=== PATIENT | male | born 1980 ===

== ENCOUNTER 2017-09-29 03:37 | Emergency (ER) | payer SELFPAY ==
[2017-09-29 03:53] VITALS: RESP 18
--- NOTE | 2017-09-29 04:41 | ED PDOC ---
HPI: Psych/Substance Abuse Time Seen by Provider: 09/29/17 03:48 Chief Complaint (Nursing): Psychiatric Evaluation History Per: Patient Additional Complaint(s): Pt. states for the past 2 months he's been feeling depressed. Reports recently starting a new antidepressant. This evening after work he felt overwhelmed and depression worsened. He began to feel suicidal. States he walked up to a bridge in an attempt to jump off of it but became scared and did not go through with the plan. Denies HI, hallucinations. Offers no physical complaints at this time. Past Medical History Reviewed: Historical Data, Nursing Documentation, Vital Signs Vital Signs: Last Vital Signs Temp 97.3 F L 09/29/17 03:50 Pulse 83 09/29/17 03:50 Resp 18 09/29/17 03:50 BP 155/94 H 09/29/17 03:50 Pulse Ox 99 09/29/17 03:50 - Family History Family History: States: No Known Family Hx - Allergies Allergies/Adverse Reactions: Allergies Allergy/AdvReac Type Severity Reaction Status Date / Time No Known Allergies Allergy Verified 09/29/17 03:52 Review of Systems ROS Statement: Except As Marked, All Systems Reviewed And Found Negative Psych: Positive for: Anxiety, Depression Physical Exam - Physical Exam Appears: Positive for: Well, Non-toxic, In Acute Distress (appears anxious) Skin: Positive for: Normal Color, Warm. Negative for: Rash Eye Exam: Positive for: Normal appearance ENT: Positive for: Normal ENT Inspection Neck: Positive for: Normal, Painless ROM Cardiovascular/Chest: Positive for: Regular Rate, Rhythm Respiratory: Positive for: CNT, Normal Breath Sounds Gastrointestinal/Abdominal: Positive for: Normal Exam, Soft. Negative for: Tenderness Back: Positive for: Normal Inspection Extremity: Positive for: Normal ROM Neurologic/Psych: Positive for: Alert, Oriented, Mood/Affect (appears anxious but is consolable). Negative for: Aphasia, Facial Droop - ECG O2 Sat by Pulse Oximetry: 99 - Progress ED Course And Treament: Pt. placed on 1:1. Crisis evaluation ordered. Xanax 0.5mg PO ordered. Disposition - Clinical Impression Clinical Impression: Depression - Patient ED Disposition Is Patient to be Admitted: Transfer of Care (Signed out to Dr. Sarabia pending crisis evaluation.) - Disposition Disposition Time: 06:00 Condition: STABLE Forms: [employer] (C[place] Verdean)
[2017-09-29 06:41] VITALS: BP 136/79; PULSE 82; TEMP 98; O2SAT 100
== END 2017-09-29 06:41 | disposition home or self-care (01) ==
LOC: H.ER 03:37
DX: F32.9 Major depressive disorder, single episode, unspecified (principal)

== ENCOUNTER 2018-08-20 15:52 | Emergency (ER) | payer SELFPAY ==
--- NOTE | 2018-08-20 16:21 | ED PDOC ---
HPI: Psych/Substance Abuse Time Seen by Provider: 08/20/18 16:13 Chief Complaint (Nursing): Psychiatric Evaluation Chief Complaint (Provider): Suicidal Ideation History Per: Patient, Other ([employer] worker) History/Exam Limitations: no limitations Onset/Duration Of Symptoms: Days (x2 weeks) Current Symptoms Are (Timing): Still Present Additional Complaint(s): 38 year old male presents to the ED brought in by [employer] worker after expressing suicidal thoughts for the past two weeks with a plan to either jump off a bridge or cut/hang himself. He notes his depression is secondary to separation from his . PMD: none provided Past Medical History Reviewed: Historical Data, Nursing Documentation, Vital Signs Vital Signs: Last Vital Signs Temp 98.4 F 08/20/18 16:03 Pulse 75 08/20/18 16:03 Resp 16 08/20/18 16:03 BP 135/83 08/20/18 16:03 Pulse Ox 100 08/20/18 16:03 - Medical History PMH: Depression Denies: Diabetes, Hepatitis, HIV, HTN, Seizures, Sexually Transmitted Disease - Surgical History Surgical History: No Surg Hx - Family History Family History: States: Unknown Family Hx - Allergies Allergies/Adverse Reactions: Allergies Allergy/AdvReac Type Severity Reaction Status Date / Time No Known Allergies Allergy Verified 09/29/17 03:52 Review of Systems ROS Statement: Except As Marked, All Systems Reviewed And Found Negative Psych: Positive for: Depression, Suicidal ideation (with plan) Physical Exam - Reviewed Nursing Documentation Reviewed: Yes Vital Signs Reviewed: Yes - Physical Exam Appears: Positive for: No Acute Distress Head Exam: Positive for: ATRAUMATIC, NORMOCEPHALIC Skin: Positive for: Normal Color, Warm, Dry Eye Exam: Positive for: Normal appearance, EOMI, PERRL ENT: Positive for: Normal ENT Inspection Neck: Positive for: Normal, Painless ROM, Supple Cardiovascular/Chest: Positive for: Regular Rate, Rhythm Respiratory: Positive for: Normal Breath Sounds. Negative for: Respiratory Distress Gastrointestinal/Abdominal: Positive for: Normal Exam, Soft. Negative for: Tenderness Extremity: Positive for: Normal ROM Neurologic/Psych: Positive for: Alert, Oriented (x3) - Laboratory Results Result Diagrams: 08/20/18 16:47 - ECG O2 Sat by Pulse Oximetry: 100 (RA) Pulse Ox Interpretation: Normal Medical Decision Making Medical Decision Making: Time: 1619 Initial Impression: suicidal ideation with plan Initial Plan: --EKG --Alcohol serum --CMP --Drug screen --CBC with differential --U-dip --CXR --1:1 Observation Scribe Attestation: Documented by Leonor Ramirez, acting as a scribe for Geoff Turner MD. Provider Scribe Attestation: All medical record entries made by the Scribe were at my direction and personally dictated by me. I have reviewed the chart and agree that the record accurately reflects my personal performance of the history, physical exam, medical decision making, and the department course for this patient. I have also personally directed, reviewed, and agree with the discharge instructions and disposition. Disposition - Clinical Impression Clinical Impression: Depression - Patient ED Disposition Is Patient to be Admitted: Transfer of Care - Disposition Disposition: Transfer of Care Disposition Time: 17:05 Condition: FAIR Forms: [employer] ([place]ican) Patient Signed Over To: Kristen Velasquez
[2018-08-20 16:52] LABS: BASO % 0.6 % (0.0-2.0); EOS # 0.1 K/uL (0.0-0.7); EOS % 1.4 % (0.0-4.0); HEMOGLOBIN 14.5 g/dL (12.0-18.0); LYMPH # 1.4 K/uL (1.0-4.3); LYMPH % 24.5 % (20.0-40.0); MEAN CELL VOLUME 86.7 fl (80.0-94.0); MEAN CORPUSCULAR HEMOGLOBIN 28.4 pg (27.0-31.0); MEAN CORPUSCULAR HGB CONC 32.8 g/dL (33.0-37.0); MONO # 0.7 K/uL (0.0-0.8); MONO % 11.1 % (0.0-10.0); NEUT # 3.6 K/uL (1.8-7.0); NEUT % 62.4 % (50.0-75.0); NRBC % 0.1 % (0.0-0.0); RBC 5.1 Mil/uL (4.40-5.90); RED CELL DISTRIBUTION WIDTH 13.7 % (11.5-14.5); WHITE BLOOD COUNT 5.8 K/uL (4.8-10.8)
[2018-08-20 17:09] LABS: ALB/GLOB RATIO 1.4 (1.0-2.1); ALBUMIN 4.4 g/dL (3.5-5.0); ALT/SGPT 32 U/L (21-72); AST/SGOT 24 U/L (17-59); BLOOD UREA NITROGEN 15 mg/dl (9-20); CALCIUM 9.6 mg/dL (8.4-10.2); GFR NON-AFRICAN AMERICAN > 60
--- NOTE | 2018-08-20 17:15 | ED PDOC ---
- Laboratory Results Result Diagrams: 08/20/18 16:47 08/20/18 16:47 - ECG Interpretation Of ECG: Sinus rosendo @ 59, IRBBB. O2 Sat by Pulse Oximetry: 100 (RA) Medical Decision Making Medical Decision Making: Accession No. : [id number] Patient Name / ID : TERRY HARDIN / [id number] Exam Date : 08/20/2018 17:45:29 ( Approved ) Study Comment : Sex / Age : M / 38Y Creator : Elzbieta Quesada MD Dictator : Elzbieta Quesada MD Old Testament Professor : [employer] : Elzbieta Quesada MD Approver2 : Report Date : 08/20/2018 18:26:14 My Comment : This report is currently processing and HAS NOT BEEN OFFICIALLY SIGNED BY THE PHYSICIAN - ESTIMATED TIME OF APPROVAL IS 08/20/2018 18:31. Date of service: 08/20/2018 HISTORY: cough COMPARISON: No prior. FINDINGS: LUNGS: The lungs are well inflated and clear. PLEURA: No pleural effusions or pneumothorax. CARDIOVASCULAR: The heart is normal in size. No aortic atherosclerotic calcification present. OSSEOUS STRUCTURES: Within normal limits for the patient's age. VISUALIZED UPPER ABDOMEN: Normal. OTHER FINDINGS: None. IMPRESSION: No active pulmonary disease. Disposition - Clinical Impression Clinical Impression: Depression - Disposition Condition: FAIR Forms: [employer] (Spanish) Addendum Addendum: 08/20/18 17:00 Pt signed out by Dr. Turner pending medical clearance.
[2018-08-20 18:25] LABS: BARBITURATES, UR NEGATIVE (NEGATIVE); BENZODIAZEPINES, UR NEGATIVE (NEGATIVE); OPIATES, UR NEGATIVE (NEGATIVE); PHENCYCLIDINE, UR NEGATIVE (NEGATIVE)
--- NOTE | 2018-08-20 18:29 | RAD ---
Date of service: 08/20/2018 HISTORY: cough COMPARISON: No prior. FINDINGS: LUNGS: The lungs are well inflated and clear. PLEURA: No pleural effusions or pneumothorax. CARDIOVASCULAR: The heart is normal in size. No aortic atherosclerotic calcification present. OSSEOUS STRUCTURES: Within normal limits for the patient's age. VISUALIZED UPPER ABDOMEN: Normal. OTHER FINDINGS: None. IMPRESSION: No active pulmonary disease.
[2018-08-20 19:48] VITALS: BP 136/79; PULSE 76; RESP 15; TEMP 98.2; O2SAT 99
--- NOTE | 2018-08-21 06:18 | CARD ---
APPROVED REPORT Date of service: 08/20/2018 EKG Measurement Heart [id number] <Conclusion> Sinus bradycardia Incomplete right bundle branch block Borderline ECG
== END 2018-08-20 19:48 | disposition home or self-care (01) ==
LOC: H.ER 15:52
DX: F32.9 Major depressive disorder, single episode, unspecified (principal)
CPT/HCPCS: 71045; 80053; 85025; 93005; 99282; G0480